=== PATIENT | female | born 1980 | race Caucasian/White ===

== ENCOUNTER 2016-09-11 02:06 | Emergency (ER) | payer BC ==
[~2016-09-11 02:06] MED LIST: ALLEGRA180 MG PO; PROVENTIL17 GM IH
[2016-09-11] MEDS ORDERED: SYNTHROID100 MC1 PO (02:36)
[2016-09-11] MEDS ORDERED: QNASL8.7 G1 (02:37)
[2016-09-11] MEDS ORDERED: SINGULAIR10 M1 PO (02:37)
[2016-09-11] MEDS ORDERED: [UNRECOGNIZED DRUG - OTHER] (02:38)
[2016-09-11] MEDS ORDERED: BACTRIM DS TAB1 EAC2 PO (04:39)
[2016-09-11] MEDS ORDERED: NORCO 5/3251 TAB PO (04:39)
== END 2016-09-11 04:50 ==
LOC: EDMED 02:06
DX: S91.202A Unspecified open wound of left great toe with damage to nail, initial encounter (principal); J45.909 Unspecified asthma, uncomplicated; E03.9 Hypothyroidism, unspecified; Z79.51 Long term (current) use of inhaled steroids; Z79.890 Hormone replacement therapy; Z79.899 Other long term (current) drug therapy; W52.XXXA Crushed, pushed or stepped on by crowd or human stampede, initial encounter; Y92.838 Other recreation area as the place of occurrence of the external cause